=== PATIENT | male | born 1970 | race Caucasian/White ===

== ENCOUNTER 2019-07-04 14:45 | Emergency (ER) | payer MEDICARE, MEDICAID ==
[~2019-07-04] VITALS: Ht 172.7 cm; Wt 110.0 kg
[~2019-07-04 14:45] MED LIST: AMLO10TA PO; COLC0.6T11 PO; HYDR-4353 PO; TRAM50TA2 PO; ZES10T PO
[2019-07-04 15:03] VITALS: BP 165/98
[2019-07-04] MEDS ORDERED: gentamicin 0.1% topical ointment 15gm TP ONE (15:40)
== END 2019-07-04 16:01 | disposition home or self-care (01) ==
LOC: ER 14:45
DX: S31.815A Open bite of right buttock, initial encounter (principal); S01.05XA Open bite of scalp, initial encounter; I10 Essential (primary) hypertension; M10.9 Gout, unspecified; F12.90 Cannabis use, unspecified, uncomplicated; Z88.6 Allergy status to analgesic agent; Z79.899 Other long term (current) drug therapy; Z98.890 Other specified postprocedural states; W57.XXXA Bitten or stung by nonvenomous insect and other nonvenomous arthropods, initial encounter; Y93.89 Activity, other specified; Y92.89 Other specified places as the place of occurrence of the external cause; Y99.8 Other external cause status
CPT/HCPCS: 99283